=== PATIENT | female | born 1990 | race Caucasian/White ===

== ENCOUNTER 2019-12-31 11:42 | Emergency (ER) | payer BC, SELFPAY ==
--- NOTE | 2019-12-31 11:49 | ED.GENADULT ---
HPI - General Adult General Chief complaint: Upper Respiratory Infection Stated complaint: SORE THROAT/RUNNY NOSE/EYES BURNING Time Seen by Provider: 12/31/19 12:10 Source: patient Mode of arrival: ambulatory Limitations: no limitations History of Present Illness HPI narrative: 29-year-old female patient presents to the [facility] with complaints of cold symptoms that started yesterday. Patient states she did not get a flu shot this year. Patient states she has had a headache, nasal congestion, runny nose, sneezing and a slight cough. Patient also complaining of sore throat. Patient denies any nausea, vomiting or diarrhea. Denies any chest pain or shortness of breath. Patient denies taking anything for her symptoms. Patient states that she is working today and just ran over on her lunch break. Patient denies any or breast-feeding at the this time. Related Data Home Medications Medication Instructions Recorded Confirmed Daily Multivitamin 12/31/19 aspirin 81 mg PO DAILY 12/31/19 12/31/19 lisinopril 5 mg PO DAILY 12/31/19 12/31/19 Allergies Allergy/AdvReac Type Severity Reaction Status Date / Time codeine Allergy Unknown Rash Verified 12/31/19 11:56 latex Allergy Unknown Rash Verified 12/31/19 11:56 Review of Systems Review of Systems: Narrative: CONSTITUTIONAL: Denies fever, chills, or sweats. EYES: Denies visual changes, redness, or discharge. ENT: Positive rhinorrhea, congestion, sore throat, denies otalgia. CARDIOVASCULAR: Denies chest pain, palpitations, or edema. RESPIRATORY: Positive mild nonproductive cough, denies dyspnea. GASTROINTESTINAL: Denies abdominal pain, nausea, vomiting, or diarrhea. GENITOURINARY: Denies dysuria or hematuria. SKIN: Denies rash or itching. MUSCULOSKELETAL: Denies back pain, joint pain, or myalgia. NEUROLOGIC: Positive headache, denies numbness, or weakness. PSYCHIATRIC: Denies anxiety or depression. PMFSH Past Medical History Medical History (Updated 12/31/19 @ 12:20 by SATHYA Dhaliwal) Hypertension With Comments At the time of my signature I agree with nursing past medical history, surgical, social, and family history. There is no relevant family history pertinent to the presenting complaint. Exam Narrative: Exam Narrative: GENERAL: Well-appearing, well-nourished, and in no acute distress. HEAD: Normocephalic, atraumatic. No tenderness noted to frontal maxillary sinuses on palpation. EYES: PERRLA and EOMI. ENT: Nares clear, no rhinorrhea or epistaxis. Mucous membranes moist. Posterior pharynx with no erythema, tonsil enlargement, exudates or lesions present. Bilateral TMs are clear no erythema or foreign bodies in the canal. NECK: Supple. No lymphadenopathy CHEST: Clear to auscultation. No respiratory distress. HEART: Regular rate and rhythm. No murmur heard. Normal peripheral pulses. ABDOMEN: Soft, nontender, nondistended, normal active bowel sounds. EXTREMITIES: Normal range of motion. No edema. SKIN: Warm, dry, no rash. NEURO: No focal deficits. Alert and oriented x3. Course Reevaluation(s) Reevaluation #1: Notify patient that she is negative today for strep and influenza. Discussed with her that this is most likely some type of cold or virus that is causing her symptoms. Discussed with her she can take [id number] medications such as Tylenol, ibuprofen, a daily antihistamine or nasal steroid. Patient verbalized understanding denies any other questions or concerns at this time. Date: 12/31/19 Time: 12:20 Vital Signs Vital signs: Vital Signs Temperature 36.8 C 12/31/19 11:50 Pulse Rate 78 12/31/19 11:50 Respiratory Rate 16 12/31/19 11:50 Blood Pressure 133/87 12/31/19 11:50 Pulse Oximetry 100 12/31/19 11:50 Temperature 36.8 C 12/31/19 11:50 Pulse Rate 78 12/31/19 11:50 Respiratory Rate 16 12/31/19 11:50 Blood Pressure 133/87 12/31/19 11:50 Pulse Oximetry 100 12/31/19 11:50 Vital signs rev
[2019-12-31 11:50] VITALS: BP 133/87; PULSE 78; RESP 16; TEMP 36.8; O2SAT 100
== END 2019-12-31 12:30 | disposition home or self-care (01) ==
PROVIDERS: Emergency Provider Nurse Practitioner Family
DX: J06.9 Acute upper respiratory infection, unspecified (principal); R05 Cough
CPT/HCPCS: 87081; 87804; 87880; 99213; G0463

== ENCOUNTER 2020-08-17 12:48 | Outpatient (CLI) | payer OTHER, SELFPAY ==
--- NOTE | ~2020-08-17 | US_ITS ---
EXAMINATION: US thyroid EXAM DATE: 08/17/2020 14:36 INDICATION: Nontoxic goiter. Hypertension. TECHNIQUE: Multiple grayscale and Doppler images of the thyroid were obtained (by a technologist who performed the scan) and subsequently reviewed. Individual nodules and recommendations may be reporte d in accordance with TI-RADS system as designated by the 2017 ACR White Paper TI-RADS committee. The re is no prior study for comparison. FINDINGS: The right thyroid lobe measures 6.0 x 2.0 x 2.0 cm, the left measuring 7.0 x 4.1 x 5.1 cm. There is r elatively homogeneous thyroid echogenicity overall. Possible right thyroid lobe midpole deep nodule identified measuring 7 x 5 x 4 millimeters, solid (2 points), hypoechoic (2 points), wider than tall, smooth margin, without echogenic foci, category TR4 for this nodule. According to current recommendations, this is not likely clinically significant and no further monitoring for this. A repeat thyroid ultrasound can be obtained if additional palpable a bnormality develops. IMPRESSION: 1. Moderate thyromegaly. 2. Possible small right thyroid lobe nodule, not likely clinically significant. Reviewed, dictated and finalized at location A. IMPRESSION: 1. Moderate thyromegaly. 2. Possible small right thyroid lobe nodule, not likely clinically significant .
--- NOTE | ~2020-08-17 | US_ITS ---
EXAMINATION: US renal BI DATE: 08/17/2020 14:36 INDICATION: Hypertension. TECHNIQUE: Multiple ultrasound grayscale images of the kidneys were obtained. COMPARISON: None. FINDINGS: The right kidney measures 10.1 x 4.0 x 5.2 cm. The left kidney measures 10.0 x 4.4 x 5.2 cm. The kidn eys demonstrate normal parenchymal echogenicity. There is no hydronephrosis. The bladder is normal. IMPRESSION: 1. Normal kidneys. No hydronephrosis. Reviewed, dictated and finalized at location A.
--- NOTE | ~2020-08-17 | US_ITS ---
EXAMINATION: US retroperitoneal duplex ltd DATE: 08/17/2020 14:36 INDICATION: Hypertension. TECHNIQUE: Multiple grayscale, color Doppler, and pulsed Doppler images of the kidneys and renal laura frank were obtained. COMPARISON: None. FINDINGS: The aorta peak systolic velocity is 122 cm/s. The right renal artery peak systolic velocity is 112 cm /s in the proximal segment, 92 cm/s in the mid segment, and 90 cm/s in the distal segment. The left r enal artery peak systolic velocity is 74 cm/s in the proximal segment, 67 cm/s in the mid segment, an d 60 cm/s in the distal segment. IMPRESSION: 1. No Doppler evidence of renal artery stenosis. Reviewed, dictated and finalized at location A.
== END 2020-08-17 12:49 | disposition home or self-care (01) ==
LOC: ANHIMG 12:52
PROVIDERS: Visit Provider Internal Medicine
DX: E04.1 Nontoxic single thyroid nodule (principal); I10 Essential (primary) hypertension
CPT/HCPCS: 76536; 76775; 93976

== ENCOUNTER 2021-05-05 07:07 | Outpatient (CLI) | payer OTHER, SELFPAY ==
--- NOTE | 2021-05-05 07:21 | ECHO_ITS ---
Patient Info Name: Rachana Choe Age: 31 years : 1990 Gender: Female Ht: 66 in Wt: 118 lbs BSA: 1.57 m2 HR: 81 bpm BP: 132 / 101 mmHg Technical Quality: Good Exam Date: 05/05/2021 7:37 AM Exam Location: [facility] Patient Status: Outpatient Admit Date: 05/05/2021 Staff Ordering Physician: Partha Meier MD Machine Adjuster Leader: Sterling Gomez RDCS, RT Attending Provider: Partha Meier MD Referring Physician: Hardeep FERNANDO; Exam Type: CA echo doppler color flow Study Info Indications R01.1 - Cardiac murmur, unspecified Complete two-dimensional, color flow and Doppler transthoracic echocardiogram is performed. Strain analysis performed. Summary 1. Complete two-dimensional, color flow and Doppler transthoracic echocardiogram is performed. 2. Left ventricular chamber dimension is normal. 3. Left ventricular systolic function is normal, estimated at 60-65%. 4. The left ventricular diastolic function is normal. 5. E/e' 6 is not elevated. 6. Global longitudinal strain is normal at -18.5%. 7. There is trace mitral valve regurgitation. Left Ventricle E/e' 6 is not elevated. Global longitudinal strain is normal at -18.5%. Left ventricular chamber dimension is normal. Left ventricular systolic function is normal, estimated at 60-65%. The left ventricular diastolic function is normal. Right Ventricle Right ventricular systolic function is normal and with normal TAPSE 1.8 cm. Right ventricular chamber dimension is normal. Left Atria Left atrial chamber dimension is normal. Right Atria Right atrial chamber dimension is normal. Atrial Septum Intact interatrial septum visualized by Doppler imaging. Aortic Valve The aortic valve is probable trileaflet. There is no aortic valve stenosis. There is no aortic valve regurgitation. Pulmonic Valve There is no pulmonic regurgitation. Mitral Valve There is no mitral valve stenosis. There is trace mitral valve regurgitation. Tricuspid Valve There is no tricuspid valve regurgitation. Pericardium/Pleural There is no pericardial effusion. Inferior Vena Cava Normal inferior vena cava with >50% collapse upon inspiration consistent with normal right atrial pressure, 5 mmHg. Aorta The aortic root size at the sinus of Valsalva is normal. Left Ventricular Outflow Tract Name Value Normal LVOT 2D LVOT Diameter 2.0 cm LVOT Doppler LVOT Peak Gradient 3 mmHg LVOT Mean Gradient 1 mmHg LVOT VTI 15 cm LVOT VTI/AV VTI Ratio 0.7 LVOT Stroke Volume 48 ml LVOT CO 4.1 l/min LVOT CI 2.6 l/min/m2 Mitral Valve Name Value Normal MV Doppler MV Decel Benton
== END 2021-05-05 07:08 | disposition home or self-care (01) ==
PROVIDERS: PCP Internal Medicine; Visit Provider Internal Medicine
DX: R01.1 Cardiac murmur, unspecified (principal)
CPT/HCPCS: 93306

== ENCOUNTER 2022-06-28 08:01 | Outpatient (CLI) | payer OTHER, SELFPAY ==
[2022-06-28 08:33] LABS: Hematocrit 41.5 % (37.0-47.0); Hemoglobin 13.6 g/dL (12.0-15.0)
[2022-06-28 08:45] LABS: INR 1.1; Prothrombin Time 13.6 Seconds (11.1-14.7)
[2022-06-28 08:46] LABS: Partial Thromboplastin Time 30.4 SECONDS (22.3-36.8)
== END 2022-06-28 08:02 | disposition home or self-care (01) ==
LOC: ANHSURGERY 08:06
PROVIDERS: Anesthesiology; PCP Internal Medicine; Visit Provider Obstetrics & Gynecology
DX: N93.9 Abnormal uterine and vaginal bleeding, unspecified (principal); D68.9 Coagulation defect, unspecified; Z01.818 Encounter for other preprocedural examination
CPT/HCPCS: 36415; 85014; 85018; 85610; 85730

== ENCOUNTER 2022-07-01 00:25 | Day surgery (SDC) | payer OTHER, SELFPAY ==
[2022-06-23 14:44] VITALS: BMI 19.9
--- NOTE | 2022-06-23 14:51 | PC.NURSE ---
Report to the Outpatient Waiting Room, entrance under the green pavilion located off [facility], at time 0600___ on date _07/01/22_. OR Time: ___729_. - You and your visitor will be asked a series of questions to screen for COVID 19 for your protection. - Only one visitor is allowed at this time. - The patient visitor is requested to leave or wait in car when not with patient. - A mask is required within the hospital. Patients may have clear liquids (water, carbonated beverages, clear teas, apple juice) until 3 hours prior to surgery with a maximum of 20 ounces. - No food from midnight until time of surgery - Infants may have breast milk until 4 hours before surgery, formula 6 hours prior to surgery. - Children will be allowed to drink immediately following surgery. If applicable, please bring a bottle or sippy cup to assist with drinking. Juice, water, soda, and popsicles are readily available. For infants on formula, please bring formula the day of surgery. Pacifiers are allowed. Take the following medications with a SIP of water the morning of surgery: __NONE Medications to discontinue per physician ___VITAMINS, SUPPLIMENTS, PATIENT TO CHECK WITH MD ABOUT STOPPING ASPIRIN____ Date to take last dose 06/28/22 Please no make-up, nail equ[place] guine[place], hairspray, perfume, deodorant, or body powder the day of surgery. No jewelry (including any body piercings) or valuables the day of surgery, leave them at home. Please take a shower or bath the night before, or the morning of, surgery with an antibacterial soap. Wear comfortable, loose fitting clothing. Children are encouraged to wear pajamas. - Jewelry must be removed prior to entering the operating room. Rings and piercings that are not removed may be cut off. - The hospital will not accept responsibility for valuables. - Please leave all valuables, including medications, at home the day of surgery. If you are going home after surgery, a licensed limousine driver must drive you home. - NO public transportation without another adult. - We recommend that an adult stay with you for 24 hours following discharge. - We also recommend that you do not drive, make important decision, drink alcoholic beverages, or take any drugs that were not prescribed by your health care provider for at least 24 hours after your discharge time. For Pediatric surgeries, we recommend two adults accompany the child home (only one inside the building at this time). Follow any additional instructions given to you from your surgeon. If you or anyone in your household have experienced Covid symptoms in the past week, please notify your surgeon or the nurse liaison at the phone number below for possible testing. Telephone instructions given to __PATIENT__and asked if any additional questions and then verbalized understanding. Patient advised to call surgeon office or pre surgery nurse liaison [phone] if any additional questions.
--- NOTE | 2022-06-29 06:58 | P.HP_ITS ---
H&P: HPI History of Present Illness Date/Time: 06/29/22 06:58 Chief Complaint: 32-year-old female admitted for hysteroscopy dilatation curettage secondary to excessive heavy bleeding Narrative: to 32-year-old female admitted for hysteroscopy dilatation curettage secondary to excessive irregular bleeding and suspected polyp. Risks and benefits reviewed. She received the ACOG handout entitled hysteroscopy as well as dilatation curettage respectively. She had all questions answered and asked to proceed PMFSH Past Medical History Medical History (Updated 06/29/22 @ 06:59 by Titus Solitario MD) Adult BMI 19-24 kg/sq m Adult BMI <19 kg/sq m Anxiety Anxiety Encounter for preventive health examination Encounter for routine adult health examination without abnormal findings Enlarged thyroid Essential (primary) hypertension Establishing care with new doctor, encounter for Follow up Heart murmur History of anemia History of anxiety History of basal cell cancer History of ectopic History of headache Hypertension With Mitral valve regurgitation On correction drug therapy Pelvic pain Testosterone insufficiency Thyroid nodule Thyromegaly Family History Family History Mother Hypotension Rheumatoid arthritis Jaime's disease Sibling Hypertension Jaime's disease Social History Social History Smoking status: Never smoker Alcohol intake: current Drinks per week: 6 Alcohol use details: Social Substance use: never Meds Home Medications and Allergies Home Medications Medication Instructions Recorded Confirmed Type aspirin 81 mg chewable tablet 81 mg PO DAILY 12/31/19 06/27/22 History cholecalciferol (vitamin D3) 25 25 mcg PO DAILY 08/17/20 06/27/22 History mcg (1,000 unit) capsule cyanocobalamin (vitamin B-12) 1,000 mcg PO DAILY #90 tabs 08/17/20 06/27/22 Rx 1,000 mcg tablet magnesium oxide 500 mg capsule 500 mg PO DAILY 08/17/20 06/27/22 History multivitamin (One-A-Day Essential 1 tablet PO DAILY #90 tabs 08/17/20 06/27/22 Rx tablet) omega-3 fatty acids 1,000 mg 1,000 mg PO DAILY 08/17/20 06/27/22 History capsule (Fish Oil Concentrate) Testosterone Cream 1 ml topical 3XW #30 grams 11/30/21 06/27/22 Rx meclizine 25 mg tablet 25 mg PO TID PRN dizziness #25 tabs 02/01/22 06/27/22 Rx losartan 25 mg tablet 25 mg PO DAILY #90 tabs 03/07/22 06/27/22 Rx Allergies Allergy/AdvReac Type Severity Reaction Status Date / Time codeine Allergy Unknown Rash Verified 06/27/22 09:39 latex Allergy Unknown Rash Verified 06/27/22 09:39 Assessment and Plan Assessment and plan (1) Vaginal bleeding: Code(s): N93.9 - Abnormal uterine and vaginal bleeding, unspecified Status: Acute Plan hysteroscopy/dilatation curettage
--- NOTE | 2022-07-01 06:26 | WPDHPUPDATE1 ---
History and Physical Update Update Date/Time: 07/01/22 06:26 History and Physical has been reviewed, including an updated exam of the patient. There are NO changes in the patient's condition. Risks, benefits, and alternatives have been discussed and questions answered. Patient agrees to proceed with procedure.
[2022-07-01] MEDS: ACETAMINOPHEN 500 MG TABLET 1000 MG PO (06:31)
[2022-07-01 06:58] VITALS: BP 137/92; PULSE 77; RESP 16; TEMP 36.3; O2SAT 100
--- NOTE | 2022-07-01 07:02 | WPDANESEPPF ---
Anes - Initial Pre Proc Eval Procedure: Operation Date: 07/01/22 07:30 Proposed Procedures p Hysteroscopy Dilation and Curettage - Titus Solitario MD Date/Time: 07/01/22 07:02 Surgeon: Titus Solitario MD Pre Op Diagnosis: irregular bleeding Patient Data Age: 32 Gender: F Height: 1.68 m Weight: 55.3 kg Last Vital Signs Temp 36.3 C L 07/01/22 06:58 Pulse 77 07/01/22 06:58 Resp 16 07/01/22 06:58 BP 137/92 H 07/01/22 06:58 Pulse Ox 100 07/01/22 06:58 O2 Del Method Room Air 07/01/22 06:58 Allergies Allergy/AdvReac Type Severity Reaction Status Date / Time codeine Allergy Unknown Rash Verified 07/01/22 06:28 latex Allergy Unknown Rash Verified 07/01/22 06:28 Home Medications Medication Instructions Recorded Confirmed Type aspirin 81 mg chewable tablet 81 mg PO DAILY 12/31/19 06/27/22 History cholecalciferol (vitamin D3) 25 25 mcg PO DAILY 08/17/20 06/27/22 History mcg (1,000 unit) capsule cyanocobalamin (vitamin B-12) 1,000 mcg PO DAILY #90 tabs 08/17/20 06/27/22 Rx 1,000 mcg tablet magnesium oxide 500 mg capsule 500 mg PO DAILY 08/17/20 06/27/22 History multivitamin (One-A-Day Essential 1 tablet PO DAILY #90 tabs 08/17/20 06/27/22 Rx tablet) omega-3 fatty acids 1,000 mg 1,000 mg PO DAILY 08/17/20 06/27/22 History capsule (Fish Oil Concentrate) Testosterone Cream 1 ml topical 3XW #30 grams 11/30/21 06/27/22 Rx meclizine 25 mg tablet 25 mg PO TID PRN dizziness #25 tabs 02/01/22 06/27/22 Rx losartan 25 mg tablet 25 mg PO DAILY #90 tabs 03/07/22 06/27/22 Rx hydrocodone 5 mg-acetaminophen 325 1 tablet PO Q4H PRN pain #10 tabs 07/01/22 Rx mg tablet Patient hx anesthesia problems: none Family hx anesthesia problems: none Results Review: All pre-operative results and documents have been reviewed as part of the pre-operative evaluation. [facility] Past Medical History Medical History Adult BMI 19-24 kg/sq m Adult BMI <19 kg/sq m Anxiety Anxiety Encounter for preventive health examination Encounter for routine adult health examination without abnormal findings Enlarged thyroid Essential (primary) hypertension Establishing care with new doctor, encounter for Follow up Heart murmur History of anemia History of anxiety History of basal cell cancer History of ectopic History of headache Hypertension With Mitral valve regurgitation On terminal gauger drug therapy Pelvic pain Testosterone insufficiency Thyroid nodule Thyromegaly Family History Family History Mother Hypotension Rheumatoid arthritis Jaime's disease Sibling Hypertension Jaime's disease Social History Social History Smoking status: Never smoker Alcohol intake: current Drinks per week: 6 Alcohol use details: Social Substance use: never Living arrangements: with family Anes - Eval Final PreProcedure Day of Procedure 07/01/22 07:02 Patient weight: normal Lungs: clear to auscultation Airway: Mallampati scale class II Neurological: alert and oriented Last oral intake: >/= 8 hours ASA classification: II Emergent: no Anesthetic plan: proceed Anesthesia type and monitoring: general GIVS and standard monitoring Results Review: All pre-operative results and documents have been reviewed as part of the pre-operative evaluation. Informed Consent: The patient's anesthetic plan and its attendant risks and benefits were discussed with the patient/family/POA. Questions were solicited and answers provided to the satisfaction of the patient/family/POA.
[2022-07-01] MEDS: LACTATED RINGERS 1,000 ML 30 ML IV CONT (07:15)
[2022-07-01] MEDS: KETOROLAC 30 MG/ML VIAL (*BKC) IV PUSH (07:34)
--- NOTE | 2022-07-01 07:44 | W.PM.PROC2 ---
Procedure Note - Detailed Date of Procedure 07/01/22 Pre-op Diagnosis irregular bleeding Post-op Diagnosis Same Procedure Performed Hysteroscopy/dilatation curettage Surgeon Titus Solitario MD Anesthesia MAC and Local Indications Sit 32-year-old female with irregular bleeding Findings Uterus sounds 8cm. Thick endometrial tissue normal-appearing tubal ostia bilaterally Description of Procedure Patient was prepped draped in sterile fashion placed in dorsal lithotomy position. Under excellent IV sedation weighted speculum placed in posterior fornix vagina. Anterior lip of cervix grasped with single-tooth tenaculum. 2.5cc of 1% xylocaine anesthesia placed at 2, 4, 8, 10:00 a.m. of the cervix. Uterus sounded to 8cm. Serial dilatation with fragmented dilators performed. This was followed by passage of 5mm visualizing hysteroscope using normal saline as visualizing medium. Thick endometrial tissue was seen but no evidence of polyp or other irregularities. Photo documentation was undertaken. This was followed by scraping the uterus over the entire 360? removing a moderate amount of tissue until a good grating sound was heard. When when the instruments were then removed. All sponge, needle, instrument counts were correct. Were no immediate complications blood loss was estimated at5cc Estimated Blood Loss 5 Drains No Packing No Pathology Yes Complications No immediate complications Condition Stable Disposition PACU
[2022-07-01 07:47] VITALS: BP 105/57; PULSE 77; RESP 12
[2022-07-01 08:15] VITALS: BP 110/67; PULSE 69; RESP 20
[2022-07-01 08:45] VITALS: BP 111/79; PULSE 73; RESP 20
== END 2022-07-01 08:49 | disposition home or self-care (01) ==
PROVIDERS: PCP Internal Medicine; Visit Provider Obstetrics & Gynecology
PROC: 0U5B8ZZ Destruction of Endometrium, Via Natural or Artificial Opening Endoscopic (ICD-10-PCS; CPT 58563; principal; 2022-07-01 07:30)
DX: N93.9 Abnormal uterine and vaginal bleeding, unspecified (principal); I10 Essential (primary) hypertension; I34.0 Nonrheumatic mitral (valve) insufficiency; Z79.82 Long term (current) use of aspirin
CPT/HCPCS: 58558; 36415; 85014; 85018; 85610; 85730; 88305; A9270; J1100; J1885; J2001; J2250; J2405; J2704; J3010; J7030; J7120

== ENCOUNTER 2022-10-25 08:24 | Outpatient (CLI) | payer OTHER, SELFPAY ==
--- NOTE | 2022-10-25 08:32 | ECG_ITS ---
Measurements Intervals [place] Rate: 70 P: 63 [place]: 155 QRS: 71 QRSD: 83 T: 55 QT: 369 QTc: 400 Interpretive Statements SINUS RHYTHM NO PREVIOUS ECG AVAILABLE FOR COMPARISON Electronically Signed On 10-25-2022 15:31:19 CHURN OPERATOR by Yary Daniels M.D.
== END 2022-10-25 08:25 | disposition home or self-care (01) ==
PROVIDERS: PCP Internal Medicine; Visit Provider Obstetrics & Gynecology
DX: Z01.818 Encounter for other preprocedural examination (principal); I10 Essential (primary) hypertension; R10.2 Pelvic and perineal pain
CPT/HCPCS: 36415; 86850; 86900; 86901; 93005

== ENCOUNTER 2022-11-04 00:55 | Day surgery (SDC) | payer OTHER, SELFPAY ==
[2022-10-21 14:27] VITALS: BMI 19.5
--- NOTE | 2022-10-21 14:59 | PC.NURSE ---
Report to the Outpatient Waiting Room, entrance under the green pavilion located off [facility], at time _0915_ on date _11/04/22__. Planned Procedure Time: _1115___. Time changes happen often and if your time is changed the preop area will call you the afternoon before. - You and your visitor will be asked to self-screen and do not enter if you have any COVID symptoms. - Only one visitor is requested with a max of two and NO children visitors are allowed at this time. - The patient visitor may be requested to leave or wait in car when not with patient due to distancing restrictions. - A mask is optional within the hospital. Patients may have clear liquids (water, carbonated beverages, clear teas, apple juice) until 3 hours prior to surgery with a maximum of 20 ounces. - No food from midnight until time of surgery - Take the following medications with a SIP of water the morning of surgery: LOSARTAN THE NIGHT BEFORE; MECLIZINE THE MORNING OF YOUR SURGERY IF NEEDED Medications to discontinue per physician __CHECK WITH DR. JONO BURGESS re: STOPPING ASPIRIN; STOP ALL VITAMINS 11/01/22 Date to take last dose_10/31/22 FOR VITAMINS Please no make-up, nail haitian, hairspray, perfume, deodorant, or body powder the day of surgery. No jewelry (including any body piercings) or valuables the day of surgery, leave them at home. Please take a shower or bath the night before, or the morning of, surgery with an antibacterial soap. Wear comfortable, loose fitting clothing. Children are encouraged to wear pajamas. - Jewelry must be removed prior to entering the operating room. Rings and piercings that are not removed may be cut off. - The hospital will not accept responsibility for valuables. - Please leave all valuables, including medications, at home the day of surgery. If you are going home after surgery, a licensed hire car driver must drive you home. - NO public transportation without another adult if you receive anesthesia. - We recommend that an adult stay with you for 24 hours following discharge. - We also recommend that you do not drive, make important decision, drink alcoholic beverages, or take any drugs that were not prescribed by your health care provider for at least 24 hours after your discharge time. Follow any additional instructions given to you from your surgeon. If you or anyone in your household have experienced Covid symptoms in the past week, please notify your surgeon or the nurse liaison at the phone number below for possible testing. Telephone instructions given to _MOLLY_and asked if any additional questions and then verbalized understanding. Patient advised to call surgeon office or pre surgery nurse liaison [phone] if any additional questions.
--- NOTE | 2022-11-01 07:57 | PM.IMHP ---
H&P: HPI History of Present Illness Date/Time: 11/01/22 07:57 Chief Complaint: Pelvic pain Narrative: A 32-year-old female with severe pelvic pain. Imaging has been unhelpful. She continues to have pain and dyspareunia. She is offered laparoscopy. Risks and benefits reviewed including but not exclusive of , aspiration pneumonia, bleeding, transfusion, perforation injury to bowel, bladder, ureters, or other internal organs with the need for open laparotomy. She received the ACOG handout entitled laparoscopy. She had all questions answered. She asked to proceed proceed PMFSH Past Medical History Medical History Adult BMI 19-24 kg/sq m Adult BMI <19 kg/sq m Anxiety Anxiety Encounter for preventive health examination Encounter for routine adult health examination without abnormal findings Enlarged thyroid Essential (primary) hypertension Establishing care with new doctor, encounter for Follow up Heart murmur History of anemia History of anxiety History of basal cell cancer History of ectopic History of headache Hypertension With Mitral valve regurgitation On nursing home drug therapy Pelvic pain Testosterone insufficiency Thyroid nodule Thyromegaly Family History Family History Mother Hypotension Rheumatoid arthritis Jaime's disease Sibling Hypertension Jaime's disease Social History Social History Smoking status: Never smoker Alcohol intake: current Drinks per week: 6 Alcohol use details: Social Substance use: never Substance use type: does not use Spiritual care concerns: No Meds Home Medications and Allergies Home Medications Medication Instructions Recorded Confirmed Type aspirin 81 mg chewable tablet 81 mg PO DAILY 12/31/19 10/21/22 History cholecalciferol (vitamin D3) 25 25 mcg PO DAILY 08/17/20 10/21/22 History mcg (1,000 unit) capsule cyanocobalamin (vitamin B-12) 1,000 mcg PO DAILY #90 tabs 08/17/20 10/21/22 Rx 1,000 mcg tablet magnesium oxide 500 mg capsule 500 mg PO DAILY 08/17/20 10/21/22 History multivitamin (One-A-Day Essential 1 tablet PO DAILY #90 tabs 08/17/20 10/21/22 Rx tablet) omega-3 fatty acids 1,000 mg 1,000 mg PO DAILY 08/17/20 10/21/22 History capsule (Fish Oil Concentrate) Testosterone Cream 1 ml topical 3XW #30 grams 11/30/21 10/21/22 Rx meclizine 25 mg tablet 25 mg PO TID PRN dizziness #25 tabs 02/01/22 10/21/22 Rx losartan 25 mg tablet 25 mg PO DAILY #90 tabs 09/05/22 10/21/22 Rx progesterone micronized 200 mg 200 mg PO DAILY 10/21/22 10/21/22 History capsule Allergies Allergy/AdvReac Type Severity Reaction Status Date / Time codeine Allergy Unknown Rash Verified 10/21/22 15:12 latex Allergy Unknown Rash Verified 10/21/22 15:12 Exam Const: General: cooperative, healthy appearing, comfortable and average body habitus Orientation/consciousness: oriented to person, oriented to place and oriented to time HENMT: Head: normal to inspection Resp: Effort & Inspection: normal respiratory effort Cardio: Rate: regular rate Rhythm: regular rhythm Heart sounds: S1 normal heart sound present and S2 normal heart sound present GI: Inspection: normal to inspection : External Female Exam: normal external appearance Speculum Exam - Vagina: normal appearance of the vagina Speculum Exam - Cervix: normal appearance of the cervix Bimanual exam- vagina & uterus: Cervical tenderness present and Uterine tenderness Bimanual Exam- Adnexa, other: tender Assessment and Plan Assessment and plan (1) Pelvic pain: Code(s): R10.2 - Pelvic and perineal pain Status: Acute Plan Diagnostic laparoscopy
[2022-11-04] VITALS (12 sets, daily range): BP systolic 110–132; BP diastolic 64–87; PULSE 63–84; RESP 12–20; TEMP 36.1; O2SAT 98–100
--- NOTE | 2022-11-04 06:12 | WPDHPUPDATE1 ---
History and Physical Update Update Date/Time: 11/04/22 06:12 History and Physical has been reviewed, including an updated exam of the patient. There are NO changes in the patient's condition. Risks, benefits, and alternatives have been discussed and questions answered. Patient agrees to proceed with procedure.
[2022-11-04] MEDS: LACTATED RINGERS 1,000 ML 30 ML IV CONT (09:20)
[2022-11-04] MEDS: ACETAMINOPHEN 500 MG TABLET 1000 MG PO (09:36)
[2022-11-04] MEDS: KETOROLAC 15 MG/ML VIAL (*BKC) IV PUSH (09:36)
--- NOTE | 2022-11-04 09:49 | WPDANESEPPF ---
Anes - Initial Pre Proc Eval Procedure: Operation Date: 11/04/22 11:15 Proposed Procedures p Diagnostic Laparoscopy - Titus Solitario MD Date/Time: 11/04/22 09:49 Surgeon: Titus Solitario MD Pre Op Diagnosis: pelvic pain Patient Data Age: 32 Gender: F Height: 1.68 m Weight: 56.4 kg Allergies Allergy/AdvReac Type Severity Reaction Status Date / Time codeine Allergy Unknown Nausea and Verified 11/04/22 09:24 Vomiting latex Allergy Unknown Rash Verified 11/04/22 09:24 Home Medications Medication Instructions Recorded Confirmed Type aspirin 81 mg chewable tablet 81 mg PO DAILY 12/31/19 11/04/22 History cholecalciferol (vitamin D3) 25 25 mcg PO DAILY 08/17/20 11/04/22 History mcg (1,000 unit) capsule cyanocobalamin (vitamin B-12) 1,000 mcg PO DAILY #90 tabs 08/17/20 11/04/22 Rx 1,000 mcg tablet magnesium oxide 500 mg capsule 500 mg PO DAILY 08/17/20 10/21/22 History multivitamin (One-A-Day Essential 1 tablet PO DAILY #90 tabs 08/17/20 11/04/22 Rx tablet) omega-3 fatty acids 1,000 mg 1,000 mg PO DAILY 08/17/20 11/04/22 History capsule (Fish Oil Concentrate) Testosterone Cream 1 ml topical 3XW #30 grams 11/30/21 10/21/22 Rx meclizine 25 mg tablet 25 mg PO TID PRN dizziness #25 tabs 02/01/22 10/21/22 Rx losartan 25 mg tablet 25 mg PO DAILY #90 tabs 09/05/22 10/21/22 Rx progesterone micronized 200 mg 200 mg PO DAILY 10/21/22 10/21/22 History capsule hydrocodone 5 mg-acetaminophen 325 1 tablet PO Q4H PRN pain #20 tabs 11/04/22 Rx mg tablet Patient hx anesthesia problems: none Family hx anesthesia problems: none Results Review: All pre-operative results and documents have been reviewed as part of the pre-operative evaluation. [facility] Past Medical History Medical History Adult BMI 19-24 kg/sq m Adult BMI <19 kg/sq m Anxiety Anxiety Encounter for preventive health examination Encounter for routine adult health examination without abnormal findings Enlarged thyroid Essential (primary) hypertension Establishing care with new doctor, encounter for Follow up Heart murmur History of anemia History of anxiety History of basal cell cancer History of ectopic History of headache Hypertension With Mitral valve regurgitation On retirement drug therapy Pelvic pain Testosterone insufficiency Thyroid nodule Thyromegaly Family History Family History Mother Hypotension Rheumatoid arthritis Jaime's disease Sibling Hypertension Jaime's disease Social History Social History Smoking status: Never smoker Alcohol intake: current Drinks per week: 6 Alcohol use details: Social Substance use: never Substance use type: does not use Living arrangements: with family Spiritual care concerns: No Anes - Eval Final PreProcedure Day of Procedure 11/04/22 09:49 Patient weight: normal Heart: regular rate and rhythm Lungs: clear to auscultation Airway: Mallampati scale class II Neurological: alert and oriented Last oral intake: >/= 8 hours ASA classification: II Emergent: no Anesthetic plan: proceed Anesthesia type and monitoring: general ETT and standard monitoring Results Review: All pre-operative results and documents have been reviewed as part of the pre-operative evaluation. Informed Consent: The patient's anesthetic plan and its attendant risks and benefits were discussed with the patient/family/POA. Questions were solicited and answers provided to the satisfaction of the patient/family/POA.
--- NOTE | 2022-11-04 11:21 | W.PM.PROC2 ---
Procedure Note - Detailed Date of Procedure 11/04/22 Pre-op Diagnosis pelvic pain Post-op Diagnosis Other (Endometriosis/left ovarian cyst/ pelvic adhesions) Procedure Performed laparoscopic destruction of left ovarian cyst/lysis of adhesions/destruction of endometriosis Surgeon Titus Solitario MD Anesthesia General Indications this is a 32-year-old female with pelvic pain refractory to medical therapy Findings normal-appearing uterus. Normal-appearing right ovary and tube. Moderately large benign-appearing left ovarian cyst. Adhesions from the ovary and tube to the ovarian fossa on the left. Areas of powder burn endometriosis on bladder and along the uterosacral ligament. Description of Procedure Patient was prepped draped in the normal sterile fashion placed in the dorsal lithotomy position. Under excellent general trach anesthesia weighted speculum was placed in posterior fornix vagina. Anterior lip of the cervix grasped with a single-tooth tenaculum. The Castañeda's cannula was inserted the cervix attached to the single-tooth. These were used later for uterine manipulation. After emptying the bladder clear urine, the weighted speculum was removed and the gloves were changed. An infraumbilical incision made the Veress needle passed in the abdomen. Abdomen filled with CO2 gas [id number]. The 5mm trocar advanced under direct visualization assuring no injury. The patient placed in Trendelenburg and a suprapubic incision made. 5Mm trocar advanced under direct visualization assuring no injury. The above findings were seen. The areas of endometriosis of powder burn along the uterosacrals were cauterized at 35 w per 2nd with monopolar cautery. There was a the left ovary and tube were markedly adherent to the ovarian fossa. A right lower quadrant incision was made in the 5mm trocar advanced under direct visualization. Using this to left the areas were sharply dissected using occasional cautery and loose and after draining the ovarian cyst. Some small areas of endometriosis were seen and there were point cauterized with 35 w per 2nd. The colon appeared a little bit adhesed as well and this was gently released with blunt dissection. Irrigation was undertaken until clear. No other abnormalities were seen. The lower site removed. The gas removed from the abdomen. The upper site removed. The incisions closed with 4-0 Monocryl and glue. The instruments were then removed from the vagina the patient was awakened. She went to recovery in satisfactory condition. All sponge, needle, instrument counts were correct. There were no immediate complications Estimated Blood Loss 5 Drains No Packing No Pathology None sent Complications No immediate complications Condition Stable Disposition PACU
[2022-11-04] MEDS: fentaNYL CITRATE INJ (*CRX) 100 MCG/2 ML VIAL 25 MCG IV PUSH ×4 (11:44→12:23)
[2022-11-04] MEDS: oxyCODONE HCL (*CRX) 5 MG TAB IR PO (13:16)
== END 2022-11-04 14:18 | disposition home or self-care (01) ==
PROVIDERS: PCP Internal Medicine; Visit Provider Obstetrics & Gynecology
PROC: (CPT 49320; principal; 2022-11-04 11:15)
DX: N80.3C9 Endometriosis of the uterosacral ligament(s), unspecified side, unspecified depth (principal); N80.A0 Endometriosis of bladder, unspecified depth; N73.6 Female pelvic peritoneal adhesions (postinfective); N83.202 Unspecified ovarian cyst, left side; N94.10 Unspecified dyspareunia; R10.2 Pelvic and perineal pain; I10 Essential (primary) hypertension; I34.0 Nonrheumatic mitral (valve) insufficiency; Z79.82 Long term (current) use of aspirin
CPT/HCPCS: 58662; 36415; 86850; 86900; 86901; 93005; A9270; J0330; J1100; J1885; J2250; J2405; J2704; J3010; J7030; J7120

== ENCOUNTER 2024-10-08 08:13 | Outpatient (CLI) | payer OTHER, SELFPAY ==
--- NOTE | 2024-10-08 08:26 | ECG_ITS ---
Test Date: 2024-10-08 08:48:15 Measurements Intervals [place] Rate: 76 P: 57 NV: 150 QRS: 68 QRSD: 85 T: 59 QT: 334 QTc: 377 Interpretive Statements SINUS RHYTHM NORMAL ECG No previous ECG available for comparison Electronically Signed On 10-08-2024 09:00:50 OFFAL SEPARATOR by Danny Martinez D.O.
== END 2024-10-08 08:14 | disposition home or self-care (01) ==
LOC: ANHSURGERY 08:18
PROVIDERS: PCP Internal Medicine; Visit Provider Obstetrics & Gynecology
DX: N81.4 Uterovaginal prolapse, unspecified (principal); I10 Essential (primary) hypertension
CPT/HCPCS: 36415; 86850; 86900; 86901; 93005

== ENCOUNTER 2024-10-11 00:07 | Day surgery (SDC) | payer OTHER, SELFPAY ==
--- NOTE | 2024-10-04 14:11 | PC.NURSE ---
Report to the Outpatient Waiting Room, entrance under the green pavilion located off [facility], at time _0930_ on date _[id number]_. Planned Procedure Time: _1130_.? Time changes happen often and if your time is changed the preop area will call you the afternoon before. - You and your visitor will be asked to self-screen and do not enter if you have any COVID symptoms. Please call surgeon if you need to reschedule. - A mask is optional within the hospital at this time. Patients may have clear liquids (water, carbonated beverages, clear teas, apple juice) until 3 hours prior to surgery with a maximum of 20 ounces. - No food from midnight until time of surgery and no smoking. This includes no chewing gum, candy or mints. Take only the following medications with a SIP of water on the morning of surgery: __Bupropion___ DO NOT STOP ANY OF YOUR OTHER PRESCRIPTION MEDICATIONS PRIOR TO SURGERY EXCEPT THE FOLLOWING Medications to discontinue per physician ___Vitamins and fish oil Date to take last tfpu___[id number]___ Please no make-up, nail malagasy, hairspray, perfume, deodorant, or body powder the day of surgery.? No jewelry (including any body piercings) or valuables the day of surgery, leave them at home.? Please take a shower or bath the night before, or the morning of, surgery with an antibacterial soap.? Wear comfortable, loose fitting clothing.? - Jewelry must be removed prior to entering the operating room.? Rings and piercings that are not removed may be cut off. - The hospital will not accept responsibility for valuables.? - Please leave all valuables, including medications, at home the day of surgery. If you are going home after surgery, a licensed power truck driver must drive you home.? - NO public transportation without another adult if you receive anesthesia. - We recommend that an adult stay with you for 24 hours following discharge. - We also recommend that you do not drive, make important decision, drink alcoholic beverages, or take any drugs that were not prescribed by your health care provider for at least 24 hours after your discharge time. Follow any additional instructions given to you from your surgeon. Telephone instructions given to __Rachana__and asked if any additional questions and then verbalized understanding. Patient advised to call surgeon office or pre surgery nurse liaison [phone] if any additional questions.
--- NOTE | 2024-10-09 06:28 | PM.IMHP ---
H&P: HPI History of Present Illness Date/Time: 10/09/24 06:28 Chief Complaint: Pelvic pain prolapse as well as dyspareunia Narrative: 34-year-old female total vaginal hysterectomy salpingectomy secondary to uterine pelvic pain dyspareunia second-degree prolapse was heavy bleeding pressure and dyspareunia will undergo hysterectomy and salpingectomy risks and benefits reviewed including exclusive of , aspiration bleeding, transfusion, perforation injury to bowel, bladder, ureters, or other internal organs with need laparotomy. She received the ACOG hysterectomy as well as the [facility] handout. She had all questions answered. She asked to proceed Review of Systems Review of Systems: CONSTITUTIONAL: Denies fever, chills, or sweats. EYES: Denies visual changes, redness, or discharge. ENT: Positive rhinorrhea, congestion, sore throat, denies otalgia. CARDIOVASCULAR: Denies chest pain, palpitations, or edema. RESPIRATORY: Positive mild nonproductive cough, denies dyspnea. GASTROINTESTINAL: Denies abdominal pain, nausea, vomiting, or diarrhea. GENITOURINARY: Denies dysuria or hematuria. SKIN: Denies rash or itching. MUSCULOSKELETAL: Denies back pain, joint pain, or myalgia. NEUROLOGIC: Positive headache, denies numbness, or weakness. PSYCHIATRIC: Denies anxiety or depression. [facility] Past Medical History Medical History Adult BMI 19-24 kg/sq m Adult BMI <19 kg/sq m Anxiety Anxiety Encounter for preventive health examination Encounter for routine adult health examination with abnormal findings Encounter for routine adult health examination without abnormal findings Enlarged thyroid Essential (primary) hypertension Establishing care with new doctor, encounter for FHx: thromboembolic disease Follow up Hair loss Heart murmur History of anemia History of anxiety History of basal cell cancer History of ectopic History of headache History of in vitro fertilization Hoarseness of voice Hypertension With Mitral valve regurgitation On senior care drug therapy Pelvic pain Testosterone insufficiency Thyroid nodule Thyromegaly Family History Family History Mother Hypotension Rheumatoid arthritis Jaime's disease Sibling Hypertension Jaime's disease Social History Social History Smoking status: Never smoker Alcohol intake: current Drinks per week: 6 Alcohol use details: Social Substance use: never Substance use type: does not use Lack of Transportation: No Lack of Food: Never True Current Housing: I Have Housing Concerned About Future Housing: No Difficulty Paying Gas/Electric Bills: No Difficulty Paying for Meds: No Currently Unemployed: No Education: Associate Degree Difficulty w/ Childcare or Family Care: No Living arrangements: with family Occupation/Education: occupation Gender identity (if verbalized by the patient): Female Spiritual care concerns: No Meds Home Medications and Allergies Home Medications Medication Instructions Recorded Confirmed Type aspirin 81 mg chewable tablet 81 mg PO DAILY 12/31/19 10/04/24 History cyanocobalamin (vitamin B-12) 1,000 mcg PO DAILY #90 tabs 08/17/20 10/04/24 Rx 1,000 mcg tablet magnesium oxide 500 mg capsule 500 mg PO DAILY 08/17/20 10/04/24 History multivitamin (One-A-Day Essential 1 tablet PO DAILY #90 tabs 08/17/20 10/04/24 Rx tablet) omega-3 fatty acids 1,000 mg 1,000 mg PO DAILY 08/17/20 10/04/24 History capsule (Fish Oil Concentrate) cholecalciferol (vitamin D3) 50 50 mcg PO DAILY 03/23/23 10/04/24 History mcg (2,000 unit) capsule triamcinolone acetonide 55 mcg 2 spray intranasal DAILY PRN 06/13/23 10/04/24 Rx nasal spray aerosol (Nasacort) seasonal allergies #16.9 mL losartan 25 mg tablet See Rx Instructions .Route 05/31/24 10/04/24 Rx .COMPLEX #90 tabs bupropion HCl 150 mg 24 hr tablet, See Rx Instructions .Route 08/30/24 10/04/24 Rx extended release .COMPLEX #45 tabs B-complex with vitamin C 1 tablet PO DAILY 10/01/24 10/04/24 History ferrous sulfate 325 mg (65 mg 325 mg PO BID #180 tabs 10/01/24 10/04/24 Rx iron) tablet (Feosol) progesterone micronized 100 mg 150 mg PO QAM 10/01/24 10/04/24 History capsule Allergies Allergy/AdvReac Type Severity Reaction Status Date / Time codeine Allergy Unknown Nausea and Verified 10/04/24 14:03 Vomiting latex Allergy Unknown Rash Verified 10/04/24 14:03 Exam Const: General: cooperative, healthy appearing and comfortable Nutritional Appearance: average body habitus Orientation/consciousness: oriented to person, oriented to place and oriented to time HENMT: Head: normal to inspection Resp: Effort & Inspection: normal respiratory effort Cardio: Rate: regular rate Rhythm: regular rhythm Heart sounds: S1 normal heart sound present and S2 normal heart sound present GI: Inspection: normal to inspection : External Female Exam: normal external appearance Speculum Exam - Vagina: normal appearance of the vagina Speculum Exam - Cervix: normal appearance of the cervix (Second-degree prolapse present) Bimanual exam- vagina & uterus: enlarged and Uterine tenderness Bimanual Exam- Adnexa, other: normal adnexae Assessment and Plan Assessment and plan (1) Pelvic pain: Code(s): R10.2 - Pelvic and perineal pain Status: Acute (2) Iron deficiency anemia, unspecified: Qualifiers: Iron deficiency anemia type: unspecified iron deficiency Qualified Code(s): D50.9 - Iron deficiency anemia, unspecified Code(s): D50.9 - Iron deficiency anemia, unspecified Status: Acute (3) Uterine prolapse: Code(s): N81.4 - Uterovaginal prolapse, unspecified Status: Acute Assessment and Plan: Proceed with robotic total vaginal hysterectomy salpingectomy
[2024-10-11] VITALS (15 sets, daily range): BP systolic 97–132; BP diastolic 59–93; PULSE 54–94; RESP 12–18; TEMP 36.3–37.2; O2SAT 90–100; BMI 19.3
--- NOTE | 2024-10-11 06:48 | WPDHPUPDATE1 ---
History and Physical Update Update Date/Time: 10/11/24 06:48 History and Physical has been reviewed, including an updated exam of the patient. There are NO changes in the patient's condition. Risks, benefits, and alternatives have been discussed and questions answered. Patient agrees to proceed with procedure.
[2024-10-11] MEDS: LACTATED RINGERS 1,000 ML 30 ML IV CONT ×2 (08:00→10:05)
[2024-10-11] MEDS: SCOPOLAMINE 1 MG PATCH 1 PATCH TRANSDERM (08:21)
--- NOTE | 2024-10-11 08:21 | P.PNAN_ITS ---
Anes - Initial Pre Proc Eval Procedure: Operation Date: 10/11/24 09:30 Proposed Procedures p Robotic Assisted Total Vaginal Hysterectomy with Bilateral Salpingectomy - Titus Solitario MD Date/Time: 10/11/24 08:21 Surgeon: Titus Solitario MD Pre Op Diagnosis: uterine prolapse, pelvic pain, dyspareunia Patient Data Age: 34 Gender: F Height: 1.68 m Weight: 56.4 kg Allergies Allergy/AdvReac Type Severity Reaction Status Date / Time codeine Allergy Unknown Nausea and Verified 10/04/24 14:03 Vomiting latex Allergy Unknown Rash Verified 10/04/24 14:03 Home Medications Medication Instructions Recorded Confirmed Type aspirin 81 mg chewable tablet 81 mg PO DAILY 12/31/19 10/04/24 History cyanocobalamin (vitamin B-12) 1,000 mcg PO DAILY #90 tabs 08/17/20 10/04/24 Rx 1,000 mcg tablet magnesium oxide 500 mg capsule 500 mg PO DAILY 08/17/20 10/04/24 History multivitamin (One-A-Day Essential 1 tablet PO DAILY #90 tabs 08/17/20 10/04/24 Rx tablet) omega-3 fatty acids 1,000 mg 1,000 mg PO DAILY 08/17/20 10/04/24 History capsule (Fish Oil Concentrate) cholecalciferol (vitamin D3) 50 50 mcg PO DAILY 03/23/23 10/04/24 History mcg (2,000 unit) capsule triamcinolone acetonide 55 mcg 2 spray intranasal DAILY PRN 06/13/23 10/04/24 Rx nasal spray aerosol (Nasacort) seasonal allergies #16.9 mL losartan 25 mg tablet See Rx Instructions .Route 05/31/24 10/04/24 Rx .COMPLEX #90 tabs bupropion HCl 150 mg 24 hr tablet, See Rx Instructions .Route 08/30/24 10/04/24 Rx extended release .COMPLEX #45 tabs B-complex with vitamin C 1 tablet PO DAILY 10/01/24 10/04/24 History ferrous sulfate 325 mg (65 mg 325 mg PO BID #180 tabs 10/01/24 10/04/24 Rx iron) tablet (Feosol) progesterone micronized 100 mg 150 mg PO QAM 10/01/24 10/04/24 History capsule oxycodone-acetaminophen 5 mg-325 1 tablet PO Q4H PRN pain #20 tabs 10/11/24 Rx mg tablet (Percocet) Patient hx anesthesia problems: none Family hx anesthesia problems: none Results Review: All pre-operative results and documents have been reviewed as part of the pre- operative evaluation. [facility] Past Medical History Medical History Adult BMI 19-24 kg/sq m Adult BMI <19 kg/sq m Anxiety Anxiety Encounter for preventive health examination Encounter for routine adult health examination with abnormal findings Encounter for routine adult health examination without abnormal findings Enlarged thyroid Essential (primary) hypertension Establishing care with new doctor, encounter for FHx: thromboembolic disease Follow up Hair loss Heart murmur History of anemia History of anxiety History of basal cell cancer History of ectopic History of headache History of in vitro fertilization Hoarseness of voice Hypertension With Mitral valve regurgitation On senior care drug therapy Pelvic pain Testosterone insufficiency Thyroid nodule Thyromegaly Family History Family History Mother Hypotension Rheumatoid arthritis Jaime's disease Sibling Hypertension Jaime's disease Social History Social History Smoking status: Never smoker Alcohol intake: current Drinks per week: 6 Alcohol use details: Social Substance use: never Substance use type: does not use Lack of Transportation: No Lack of Food: Never True Current Housing: I Have Housing Concerned About Future Housing: No Difficulty Paying Gas/Electric Bills: No Difficulty Paying for Meds: No Currently Unemployed: No Education: Associate Degree Difficulty w/ Childcare or Family Care: No Living arrangements: with family Occupation/Education: occupation Gender identity (if verbalized by the patient): Female Spiritual care concerns: No Anes - Eval Final PreProcedure Day of Procedure 10/11/24 08:21 Patient weight: normal Heart: regular rate and rhythm Lungs: clear to auscultation Airway: Mallampati scale class II Neurological: alert and oriented Last oral intake: >/= 8 hours ASA classification: II Emergent: no Anesthetic plan: proceed Anesthesia type and monitoring: general ETT and standard monitoring Results Review: All pre-operative results and documents have been reviewed as part of the pre- operative evaluation. Informed Consent: The patient's anesthetic plan and its attendant risks and benefits were discussed with the patient/family/POA. Questions were solicited and answers provided to the satisfaction of the patient/family/POA.
[2024-10-11] MEDS: KETOROLAC 15 MG/ML VIAL (*BKC) IV PUSH (08:22)
[2024-10-11] MEDS: ACETAMINOPHEN 500 MG TABLET 1000 MG PO ×3 (08:22→21:00)
--- NOTE | 2024-10-11 08:43 | WPDHPUPDATE1 ---
History and Physical Update Update Date/Time: 10/11/24 08:43 History and Physical has been reviewed, including an updated exam of the patient. There are NO changes in the patient's condition. Risks, benefits, and alternatives have been discussed and questions answered. Patient agrees to proceed with procedure. will undergo bilateral salpingectomy
[2024-10-11] MEDS: ceFAZolin 2 GM/D5W 50 ML 2 GM/50 ML BAG IVPB (08:55)
--- NOTE | 2024-10-11 09:49 | W.PM.PROC2 ---
Procedure Note - Detailed Date of Procedure 10/11/24 Pre-op Diagnosis uterine prolapse, pelvic pain, dyspareunia Post-op Diagnosis Same Procedure Performed Robotic total vaginal hysterectomy and bilateral salpingectomy Surgeon Titus Solitario MD Anesthesia General Indications 34-year-old female with uterine prolapse and pelvic pain and dyspareunia Findings prolapsed uterus. Normal-appearing ovaries tubes status post tubal ligation paraovarian cyst Description of Procedure patient was prepped draped in the sterile fashion placed in dorsal lithotomy position. Under excellent general trach anesthesia weighted speculum placed in posterior fornix vagina. Anterior lip of cervix grasped with single-tooth tenaculum uterus sounded to 9cm. Serial dilatation fragmented dilators performed followed by passage of the 8. BING and the 3. Cold cup. Next the 16 Bulgarian catheter was placed the bladder. The weighted speculum and the single-tooth removed. The gloves were changed. A supraumbilical incision made the Veress needle passed in the abdomen. Abdomen filled with CO2 gas [id number]. The 8mm trocar advanced in the abdomen. Downside visualized no injury seen patient placed in Trendelenburg right left lateral quadrant incisions made. 8Mm trocars were advanced under direct visualization assuring no injury. A right upper quadrant incision made the 8mm trocar advanced under direct visualization assuring no injury. The robot was docked. Attention was turned to the career development counselor. The left round ligament glass, burned, cut anterior bladder flap was formed by sharply dissecting the peritoneum reflecting the bladder caudally away from the cervix to the opposite round ligament which was clamped, burned, cut. Next the left fallopian tube which had been previously bisected was dissected away from the ovarian complex and left attached to its uterine origin. In similar fashion on the right the fallopian tube was sharply dissected away from ovary and left attached to its uterine origin. The utero-ovarian ligament on the right was serially skeletonized to conserve the left ovary was clamped, burned, cut and brought to level of previously cut round ligament. In similar fashion conserving the right ovary, the utero-ovarian was clamped, burned, cut and brought to the level of previously cut round ligament. The cardinal broad ligaments on the left were serially skeletonized clamping burning cutting and bringing this down the lateral edge of the uterus and cervix hugging the cervix uterus until the large tortuous blood vessels were seen. These were individually clamped, burned, cut. In similar fashion on the right the cardinal broad ligaments were serially skeletonized clamping burning cutting and previous down the lateral edge until the uterine vessels could be seen on the right these were individually clamped, burned, cut. The uterus with showed good blanching and colpotomy incision was made. Cervix uterus and tubes removed through the vagina. The vagina then closed with continuous running 0V lock from lateral edge to lateral edge back to the midline. Irrigation undertaken to clear and hemostasis was assured. All pedicles were dry. The robot was undocked. The gas removed from the abdomen the trocars removed the incisions closed with 4 Monocryl and glue. The patient was awakened went recovery in satisfactory condition. All sponge, needle, instrument counts were correct. There were no immediate complications Estimated Blood Loss 25 Drains No Packing No Pathology Yes Complications No immediate complications Condition Stable Disposition PACU
--- NOTE | 2024-10-11 09:53 | PM.DS ---
DS: Admitting Diagnosis Discharge Date 10/12/2024. Admitting Diagnosis Uterine prolapse/pelvic pain/ dyspareunia DS: Discharge Diagnosis Discharge Diagnosis (1) Uterine prolapse: Code(s): N81.4 - Uterovaginal prolapse, unspecified Status: Acute (2) Pelvic pain: Code(s): R10.2 - Pelvic and perineal pain Status: Acute (3) Iron deficiency anemia, unspecified: Qualifiers: Iron deficiency anemia type: unspecified iron deficiency Qualified Code(s): D50.9 - Iron deficiency anemia, unspecified Code(s): D50.9 - Iron deficiency anemia, unspecified Status: Acute DS: Summary Hospital Course Reason for hospitalization: patient was admitted for robotic total vaginal hysterectomy bilateral salpingectomy on 10/11/2024. Hospital Course: Patient's hospital course unremarkable. She remained afebrile. She was up, voiding without difficulty, eating regular diet, ambulating, and generally without complaints. Time Spent with Patient Time attestation: Total time spent providing and/or coordinating discharge services: Exam Const: General: cooperative, healthy appearing and comfortable Nutritional Appearance: average body habitus Orientation/consciousness: oriented to person, oriented to place and oriented to time HENMT: Head: normal to inspection Chest: Chest palpation & inspection: normal inspection of the chest Resp: Effort & Inspection: normal respiratory effort Cardio: Rate: regular rate Rhythm: regular rhythm Heart sounds: S1 normal heart sound present and S2 normal heart sound present GI: Inspection: normal to inspection and incision ( Wounds are clean dry and intact) DS: Data Data Completed and Pending Pending studies at discharge: Pending at discharge 10/11/24 09:24 Surgical [PTH] Routine Discharge Plan Discharge Patient Disposition: Home, Self-Care Stand Alone Forms: General Discharge Instructions Follow-up/Referrals: Titus Brown MD [Physician] - Discharge Medications: New oxycodone-acetaminophen [Percocet] 5-325 mg tablet 1 tablet PO Q4H PRN (Reason: pain) Qty: 20 0RF No Action aspirin 81 mg Tablet,Chewable 81 mg PO DAILY progesterone micronized 100 mg capsule 150 mg PO QAM Rx Instructions: off 7 days; repeat cycle B-complex with vitamin C Tablet 1 tablet PO DAILY ferrous sulfate [Feosol] 325 mg (65 mg iron) tablet 325 mg PO BID Qty: 180 1RF multivitamin [One-A-Day Essential] Tablet 1 tablet PO DAILY Qty: 90 0RF omega-3 fatty acids [Fish Oil Concentrate] 1,000 mg capsule 1,000 mg PO DAILY cyanocobalamin (vitamin B-12) 1,000 mcg tablet 1,000 mcg PO DAILY Qty: 90 0RF magnesium oxide 500 mg capsule 500 mg PO DAILY triamcinolone acetonide [Nasacort] 55 mcg aerosol,spray 2 spray intranasal DAILY PRN (Reason: seasonal allergies) Qty: 16.9 0RF Rx Instructions: administer into each nostril cholecalciferol (vitamin D3) 50 mcg (2,000 unit) capsule 50 mcg PO DAILY losartan 25 mg tablet See Rx Instructions .ROUTE .COMPLEX Qty: 90 1RF Dose Instruction: Take 1 tablet by mouth once daily Rx Instructions: Take 1 tablet by mouth once daily bupropion HCl 150 mg tablet extended release 24 hr See Rx Instructions .ROUTE .COMPLEX Qty: 45 0RF Dose Instruction: TAKE 1 TABLET BY MOUTH IN THE MORNING. CAN TAKE 2 TABLETS NEEDED FOR INCREASED ANXIETY Rx Instructions: TAKE 1 TABLET BY MOUTH IN THE MORNING. CAN TAKE 2 TABLETS NEEDED FOR INCREASED ANXIETY
[2024-10-11] MEDS: fentaNYL CITRATE INJ (*CRX) 100 MCG/2 ML VIAL 25 MCG IV PUSH ×8 (10:13→10:45)
[2024-10-11 10:43] LABS: BEDSIDEPREGUCG Negative (Negative)
--- NOTE | 2024-10-11 11:10 | PC.NURSE ---
This patient, Rachana Veloz, was received from PACU on 10/11/24 at 1110. Patient/family oriented to unit policies and routines
[2024-10-11] MEDS: DEXTROSE 5%/LACTATED RINGERS 1,000 ML 125 ML IV CONT ×2 (11:45→17:04)
[2024-10-11 13:39] LABS: Hematocrit 39.1 % (37.0-47.0); Hemoglobin 12.9 g/dL (12.0-15.0)
[2024-10-11] MEDS: SIMETHICONE 80 MG TAB.CHEW PO ×2 (14:01→17:04)
[2024-10-11] MEDS: KETOROLAC 30 MG/ML VIAL (*BKC) IV PUSH ×2 (14:03→21:00)
[2024-10-11] MEDS: ONDANSETRON INJ 4 MG/2 ML VIAL IV PUSH (17:06)
[2024-10-12] MEDS: ACETAMINOPHEN 500 MG TABLET 1000 MG PO ×2 (03:00→08:54)
[2024-10-12] MEDS: KETOROLAC 30 MG/ML VIAL (*BKC) IV PUSH (03:00)
[2024-10-12 04:00] VITALS: BP 105/69; PULSE 63; RESP 18; TEMP 36.4; O2SAT 98
[2024-10-12 04:37] LABS: Basophils Absolute Auto 0.1 K/mm3 (0.0-0.1); Basophils Percent Auto 0.7 % (0.2-1.2); Eosinophils Percent Auto 0.6 % (0-4.4); Hematocrit 35.8 % (37.0-47.0); Hemoglobin 11.5 g/dL (12.0-15.0); Immature Granulocyte Absolute 0.01 K/mm3 (0.00-0.031); Immature Granulocyte Percent A 0.1 % (0-0.5); Lymphocytes Absolute Auto 1.13 K/mm3 (0.9-3.2); Lymphocytes Percent Auto 15.6 % (18.3-44.2); Mean Corpuscular HGB Conc 32.1 g/dl (32-36); Mean Corpuscular Hemoglobin 27.5 pg (26-34); Mean Corpuscular Volume 85.6 fl (80-100); Monocytes Absolute Auto 0.8 K/mm3 (0.1-0.6); Monocytes Percent Auto 10.9 % (2.6-8.5); Neutrophils Absolute Auto 5.2 K/mm3 (1.3-6.7); Neutrophils Percent Auto 72.1 % (45.5-73.1); Platelet Count Result 144 k/mm3 (150-375); Red Blood Count 4.18 M/mm3 (4.2-5.4); White Blood Count 7.2 K/mm3 (4.5-10.0)
--- NOTE | 2024-10-12 06:48 | WPDANESPN ---
Anes - Prog Note Post-Op Date/Time: 10/12/24 06:48 Cardiovascular status: normal Respiratory status: normal Airway patency: baseline Mental status: baseline Post-Op hydration status: normal Vital Signs: Last Vital Signs Temp 97.6 F 10/12/24 04:00 Pulse 63 10/12/24 04:00 Resp 18 10/12/24 04:00 BP 105/69 10/12/24 04:00 Pulse Ox 98 10/12/24 04:00 O2 Del Method Room Air 10/12/24 04:00 O2 Flow Rate 2.0 10/11/24 13:00 Pain Score (VAS): 0 I/O: Intake & Output 10/11/24 10/11/24 10/12/24 15:59 23:59 07:59 Intake Total 1040 1164.6 1400 Output Total 325 1200 500 Balance 715 -35.4 900 Laboratory Tests 10/12/24 03:49 10/11/24 10/11/24 10/12/24 08:30 13:35 03:49 WBC 7.2 RBC 4.18 L Hgb 12.9 11.5 L Hct 39.1 35.8 L MCV 85.6 MCH 27.5 MCHC 32.1 RDW 13.0 Plt Count 144 L MPV 10.0 Immature Gran % (Auto) 0.1 Neut % (Auto) 72.1 Lymph % (Auto) 15.6 L [place] % (Auto) 10.9 H Eos % (Auto) 0.6 Baso % (Auto) 0.7 Lymph # (Auto) 1.13 [place] # (Auto) 0.8 H Eos # (Auto) 0.0 Baso # (Auto) 0.1 Abs Immat Gran (auto) 0.01 Absolute Neuts (auto) 5.2 Absolute Nucleated RBC 0.000 Nucleated RBC % 0.0 POC Urine HCG, Qual Negative Post-procedural complaints: nausea Patient Feedback: Patient satisfied with anesthetic care.
[2024-10-12 08:50] VITALS: BP 124/73; PULSE 76; RESP 18; TEMP 36.5; O2SAT 100
[2024-10-12] MEDS: SIMETHICONE 80 MG TAB.CHEW PO (08:55)
[2024-10-12] MEDS: DOCUSATE SODIUM 100 MG CAPSULE PO (08:55)
[2024-10-12] MEDS: IBUPROFEN 600 MG TABLET PO (08:55)
[2024-10-12] MEDS: ENOXAPARIN 40 MG/0.4 ML SYRINGE SUB-Q (08:55)
--- NOTE | 2024-10-12 11:03 | P.PNOB_ITS ---
KINDERGARTEN TEACHER ASSISTANT - A/P Postoperative Procedures: Procedures Operation Date: 10/11/24 09:30 Actual Procedure Side Surgeon p Robotic Assisted Total Vaginal Hysterectomy with Bilateral Salpingectomy Bilateral Titus Solitario MD Postoperative day: 1 Postoperative status: doing well Postoperative plan: routine post-op care, discharge and other (plan was for Lovenox for 2 weeks due to history ) Time Spent With Patient Time: Total time spent is greater than 50% in coordination of care (as documented) at patient's floor/unit and/or counseling patient: Time with patient: less than 15 minutes KINDERGARTEN TEACHER ASSISTANT- PN:Subj Post-Op Subjective Date/time seen: 10/12/24 11:03 Subjective: patient has no complaints, pain is well controlled and patient is tolerating oral intake Exam Narrative: inc c/d/i abdomen soft, nt, nd KINDERGARTEN TEACHER ASSISTANT - PN: Obj Data Vital Signs Vital Signs: Vital Signs - 24 hr 10/11/24 11:05 10/11/24 11:15 10/11/24 12:25 Temperature 98.5 F Pulse Rate 83 73 58 L Respiratory Rate 12 16 16 Blood Pressure 113/67 123/78 116/82 Pulse Oximetry 98 98 98 Oxygen Delivery Room Air Oxygen Flow Rate 10/11/24 12:40 10/11/24 12:45 10/11/24 13:00 Temperature Pulse Rate 54 L 74 Respiratory Rate 18 Blood Pressure 121/82 117/76 Pulse Oximetry 90 100 99 Oxygen Delivery Nasal Cannula Oxygen Flow Rate 2.0 10/11/24 13:00 10/11/24 19:00 10/11/24 19:00 Temperature 98.3 F Pulse Rate 88 Respiratory Rate 18 Blood Pressure 111/77 Pulse Oximetry 99 98 Oxygen Delivery Nasal Cannula Room Air Oxygen Flow Rate 2.0 10/11/24 15:45 10/11/24 17:00 10/11/24 23:00 Temperature 98.1 F Pulse Rate 86 85 94 Respiratory Rate 18 16 Blood Pressure 115/82 121/79 109/65 Pulse Oximetry 99 100 98 Oxygen Delivery Oxygen Flow Rate 10/11/24 23:00 10/12/24 04:00 10/12/24 04:00 Temperature 97.6 F Pulse Rate 63 Respiratory Rate 18 Blood Pressure 105/69 Pulse Oximetry 98 Oxygen Delivery Room Air Room Air Oxygen Flow Rate 10/12/24 08:50 Temperature 97.7 F Pulse Rate 76 Respiratory Rate 18 Blood Pressure 124/73 Pulse Oximetry 100 Oxygen Delivery Oxygen Flow Rate Intake/Output Intake/Output: Intake & Output 10/09/24 10/10/24 10/11/24 10/12/24 23:59 23:59 23:59 23:59 Intake Total 2204.6 1400 Output Total 1525 500 Balance 679.6 900 Meds/Results Medications: Active Medications Generic Name Dose Route Start Last Admin Trade Name Freq PRN Reason Stop Dose Admin Acetaminophen 1,000 mg 10/11/24 12:00 10/12/24 08:54 Acetaminophen 500 Mg Tablet PO 1,000 mg Q6HR CATRACHO Administration Docusate Sodium 100 mg 10/11/24 17:00 10/12/24 08:55 Docusate Sodium 100 Mg Capsule PO 100 mg BID CATRACHO Administration Enoxaparin Sodium 40 mg 10/12/24 09:00 10/12/24 08:55 Enoxaparin 40 Mg/0.4 Ml Syringe SUB-Q 40 mg DAILY CATRACHO Administration Dextrose/Lactated Ringer's 1,000 mls @ 125 mls/hr 10/11/24 11:10 10/12/24 01:04 Dextrose 5%/Lactated Ringers IV CONT Infused .Q8H CATRACHO Infusion Ibuprofen 600 mg 10/12/24 06:00 10/12/24 08:55 Ibuprofen 600 Mg Tablet PO 600 mg Q6HR CATRACHO Administration Naloxone HCl 0.1 mg 10/11/24 11:10 Naloxone Hcl 0.4 Mg/Ml Vial IV PUSH Q2M PRN Respiratory rate less than 10 Ondansetron HCl 4 mg 10/11/24 11:10 10/11/24 17:06 Ondansetron Inj 4 Mg/2 Ml Vial IV PUSH 4 mg Q6H PRN Administration Nausea And Vomiting Oxycodone HCl 5 mg 10/11/24 11:10 Oxycodone Hcl (*Crx) 5 Mg Tab Ir PO Q4H PRN Pain Rated 4-6 Oxycodone/Acetaminophen 1 tablet 10/11/24 09:57 Oxycodone/Acetaminophen (*Crx) 5-325 Mg Tablet PO Q4H PRN Pain Rated 7-10 Simethicone 80 mg 10/11/24 12:00 10/12/24 08:55 Simethicone 80 Mg Tab.Chew PO 80 mg TIDWM CATRACHO Administration Labs 10/12/24 03:49 Labs: Laboratory Results - last 24 hr 10/11/24 10/12/24 13:35 03:49 WBC 7.2 RBC 4.18 L Hgb 12.9 11.5 L Hct 39.1 35.8 L MCV 85.6 MCH 27.5 MCHC 32.1 RDW 13.0 Plt Count 144 L MPV 10.0 Immature Gran % (Auto) 0.1 Neut % (Auto) 72.1 Lymph % (Auto) 15.6 L [place] % (Auto) 10.9 H Eos % (Auto) 0.6 Baso % (Auto) 0.7 Lymph # (Auto) 1.13 [place] # (Auto) 0.8 H Eos # (Auto) 0.0 Baso # (Auto) 0.1 Abs Immat Gran (auto) 0.01 Absolute Neuts (auto) 5.2 Absolute Nucleated RBC 0.000 Nucleated RBC % 0.0
== END 2024-10-12 11:42 | disposition home or self-care (01) ==
LOC: ANHSURGERY 07:21 → ANHOB2 11:16
PROVIDERS: PCP Internal Medicine; Visit Provider Obstetrics & Gynecology
PROC: (CPT 58552; principal; 2024-10-11 09:30)
DX: N81.4 Uterovaginal prolapse, unspecified (principal); N72 Inflammatory disease of cervix uteri; N88.8 Other specified noninflammatory disorders of cervix uteri; D25.1 Intramural leiomyoma of uterus; N70.11 Chronic salpingitis; F41.9 Anxiety disorder, unspecified; I10 Essential (primary) hypertension; D50.9 Iron deficiency anemia, unspecified; R01.1 Cardiac murmur, unspecified; D64.9 Anemia, unspecified; I34.0 Nonrheumatic mitral (valve) insufficiency; Z79.899 Other long term (current) drug therapy; Z79.82 Long term (current) use of aspirin; Z79.891 Long term (current) use of opiate analgesic; Z98.890 Other specified postprocedural states; Z98.51 Tubal ligation status; Z85.828 Personal history of other malignant neoplasm of skin
CPT/HCPCS: 58552; S2900; 36415; 85014; 85018; 85025; 88307; 99199; A9270; J0690; J1100; J1171; J1650; J1885; J2003; J2250; J2405; J2704; J3010; J7030; J7120; J7121

== ENCOUNTER 2025-09-10 08:03 | Emergency (ER) | payer OTHER, SELFPAY ==
--- NOTE | ~2025-09-10 | XR_ITS ---
EXAMINATION: XR chest 2V, 09/10/2025 8:32 CDT HISTORY: dizzy, COMPARISON: No comparisons available. Technique: 2 views obtained. Findings: The lungs are clear, no effusion. No pneumothorax. Heart is normal size. Mediastinal and hilar contours are within normal limits. Bony thorax no acute abnormality. Impression: No acute cardiopulmonary abnormality. Reviewed, dictated and finalized at location P. Impression: No acute cardiopulmonary abnormality.
[2025-09-10 08:10] VITALS: BP 148/102; PULSE 87; RESP 16; TEMP 36.4; O2SAT 99
--- NOTE | 2025-09-10 08:11 | ECG_ITS ---
Test Date: 2025-09-10 08:16:47 Measurements Intervals [place] Rate: 88 P: 78 DC: 148 QRS: 72 QRSD: 81 T: 28 QT: 341 QTc: 413 Interpretive Statements SINUS RHYTHM WITH SINUS ARRHYTHMIA BORDERLINE ST-T WAVE ABNORMALITY- INF/LAT LEADS BASELINE ARTIFACT- I, II, AVR BORDERLINE ECG Compared to ECG 10/08/2024 08:48:15 NO SIGNIFICANT CHANGE Electronically Signed On 09-10-2025 08:24:14 CDT by Danny Martinez D.O.
[2025-09-10 08:20] VITALS: BP 150/111; PULSE 85; RESP 16; TEMP 36.6; O2SAT 99
[2025-09-10 08:35] LABS: Hematocrit 43.1 % (37.0-47.0); Hemoglobin 14.7 g/dL (12.0-15.0); Immature Granulocyte Percent A 0.3 % (0-0.5); Lymphocytes Absolute Auto 0.90 K/mm3 (0.9-3.2); Mean Corpuscular HGB Conc 34.1 g/dl (32-36); Mean Corpuscular Hemoglobin 29.7 pg (26-34); Mean Corpuscular Volume 87.1 fl (80-100); Nucleated Red Blood Cells Absolute Auto 0.000 K/mm3 (0.0-0.012); Nucleated Red Blood Cells Perc 0.0 % (0.0-0.2); Platelet Count Result 167 k/mm3 (150-375); Red Blood Count 4.95 M/mm3 (4.2-5.4); White Blood Count 7.7 K/mm3 (4.5-10.0)
[2025-09-10 08:37] LABS: Add Urine Microscopic? NO; Appearance Urine Clear (Clear); Glucose Urine UA Negative (Negative); Leukocyte Esterase Ur Negative LEU/UL (Negative); Nitrate Urine Negative (Negative); Specific Grav Ur 1.003 (1.001-1.035)
[2025-09-10 08:46] LABS: Alanine Aminotransferase 21 U/L (6-35); Albumin Level 4.8 g/dL (3.5-5.1); Alkaline Phosphatase 54 U/L (38-126); Anion Gap 7 mmol/L (4-12); Aspartate Amino Transferase 31 U/L (14-36); Bilirubin,Total 0.6 mg/dL (0.2-1.3); Blood Urea Nitrogen 24 mg/dL (7-17); Calcium 9.5 mg/dL (8.4-10.2); Carbon Dioxide 29 mmol/L (22-30); Chloride 102 mmol/L (98-107); Estimated CRCL calculation 64 ml/min; Estimated Glomerular Filt Rate > 60; Glucose 108 mg/dL (65-110); Potassium 4.6 mmol/L (3.4-5.0); Sodium 138 mmol/L (137-145); Total Protein 7.9 g/dL (6.3-8.2)
[2025-09-10 09:48] LABS: NT Pro B Type Natriuretic Pept 20 pg/mL (19.9-100); Troponin I < 0.012 ng/mL (0.000-0.034)
[2025-09-10 10:32] VITALS: BP 121/99; PULSE 80; RESP 17; O2SAT 97
--- NOTE | 2025-09-10 10:45 | ED.GENADULT ---
HPI - General Adult General Chief complaint: Recheck/Abnormal Lab/Rx Stated complaint: dizzy, near syncope, taken off bp meds recently Time Seen by Provider: 09/10/25 08:07 History of Present Illness HPI narrative: This is a 35-year-old female with history of MTHFR, hypertension, anxiety, on testosterone/progesterone presenting for an episode dizziness. Patient says that when she was eating breakfast today she felt some chest fullness and became dizzy and lightheaded. She did not lose consciousness. She has not had any nausea vomiting diarrhea. She does not have any recent viral illness. She does not chest pain or shortness of breath. She has no swelling of her lower extremities. Related Data Home Medications ?Medication ?Instructions ?Recorded ?Confirmed ?Last Taken ?Type aspirin 81 mg chewable tablet 81 mg PO DAILY 12/31/19 05/13/25 10/10/24 History magnesium oxide 500 mg capsule 500 mg PO DAILY 08/17/20 05/13/25 3 Days Ago History ~10/08/24 omega-3 fatty acids 1,000 mg 1,000 mg PO DAILY 08/17/20 05/13/25 3 Days Ago History capsule (Fish Oil Concentrate) ~10/08/24 cholecalciferol (vitamin D3) 50 50 mcg PO DAILY 03/23/23 05/13/25 3 Days Ago History mcg (2,000 unit) capsule ~10/08/24 B-complex with vitamin C 1 tablet PO DAILY 10/01/24 05/13/25 3 Days Ago History ~10/08/24 Allergies Allergy/AdvReac Type Severity Reaction Status Date / Time codeine Allergy Unknown Nausea and Verified 09/10/25 08:15 Vomiting latex Allergy Unknown Rash Verified 09/10/25 08:15 [facility] Past Medical History Medical History (Reviewed 05/13/25 @ 14:58 by Janny Guzman, [facility]) Adult BMI 19-24 kg/sq m Adult BMI <19 kg/sq m Anxiety Anxiety Encounter for preventive health examination Encounter for routine adult health examination with abnormal findings Encounter for routine adult health examination without abnormal findings Enlarged thyroid Essential (primary) hypertension Establishing care with new doctor, encounter for FHx: thromboembolic disease Follow up Hair loss Heart murmur History of anemia History of anxiety History of basal cell cancer History of ectopic History of headache History of in vitro fertilization Hoarseness of voice Hypertension With Mitral valve regurgitation On watermelon harvesting supervisor drug therapy Pelvic pain Testosterone insufficiency Thyroid nodule Thyromegaly Family History Family History Mother Hypotension Rheumatoid arthritis Jaime's disease Sibling Hypertension Jaime's disease Social History Social History (Reviewed 05/13/25 @ 14:58 by Janny Guzman [facility]) Smoking status: Never smoker Alcohol intake: current Drinks per week: 6 Alcohol use details: Social Substance use: never Substance use type: does not use Lack of Transportation: No Lack of Food: Never True Current Housing: I Have Housing Concerned About Future Housing: No Difficulty Paying Gas/Electric Bills: No Difficulty Paying for Meds: No Currently Unemployed: No Education: Associate Degree Difficulty w/ Childcare or Family Care: No Living arrangements: with family Occupation/Education: occupation Gender identity (if verbalized by the patient): Female Spiritual care concerns: No Exam Narrative: APPEARANCE: No apparent distress. Well-appearing, A&O x3 Head: atraumatic. EYES: EOMI, NOSE: Atraumatic NECK: Trachea midline RESPIRATORY: No increased rate of breathing clear to auscultation CARDIOVASCULAR: RRR, no peripheral edema ABDOMINAL: Non-distended, soft nontender MUSCULOSKELETAl: No obvious deformities NEURO: Alert. Moving 4/4 extremities SKIN:: Warm, dry. Normal color PSYCHIATRIC: Normal affect Course Vital Signs Vital signs: Vital Signs Temperature 97.6 F 09/10/25 08:10 Pulse Rate 87 09/10/25 08:10 Respiratory Rate 16 09/10/25 08:10 Blood Pressure 148/102 H 09/10/25 08:10 Pulse Oximetry 99 09/10/25 08:10 Temperature 97.8 F 09/10/25 08:20 Pulse Rate 88 09/10/25 12:13 Respiratory Rate 16 09/10/25 12:13 Blood Pressure 138/95 H 09/10/25 12:13 Pulse Oximetry 97 09/10/25 12:13 Medical Decision Making MDM Narrative Medical decision making narrative: -Course: 35-year-old female presenting for dizziness and lightheadedness. Broad workup obtained due to multiple medical comorbidities including MTHFR and hormone replacement. Troponins negative x2. BNP and D-dimer within normal limits. Initial EKG showed nonspecific ST changes in 2 3 and AVF although those had resolved by her 3 hour. Patient was monitored throughout her stay with no recurrence of her dizziness. Results were discussed with the patient she is comfortable following up with her primary care physician management. Given return precautions. -DDX includes but is not limited to: Dehydration, anxiety, viral illness, cardiac dysrhythmia, PE, pneumonia Vital Signs Vital Signs: Vital Signs Temperature 97.6 F 09/10/25 08:10 Pulse Rate 87 09/10/25 08:10 Respiratory Rate 16 09/10/25 08:10 Blood Pressure 148/102 H 09/10/25 08:10 Pulse Oximetry 99 09/10/25 08:10 Temperature 97.8 F 09/10/25 08:20 Pulse Rate 88 09/10/25 12:13 Respiratory Rate 16 09/10/25 12:13 Blood Pressure 138/95 H 09/10/25 12:13 Pulse Oximetry 97 09/10/25 12:13 Lab Data 09/10/25 08:25 09/10/25 08:25 Labs: Lab Results 09/10/25 09/10/25 Range/Units 08:25 11:18 WBC 7.7 (4.5-10.0) K/mm3 RBC 4.95 (4.2-5.4) M/mm3 Hgb 14.7 D (12.0-15.0) g/dL Hct 43.1 (37.0-47.0) % MCV 87.1 (80-100) fl MCH 29.7 (26-34) pg MCHC 34.1 (32-36) g/dl RDW 11.5 (11.5-14.5) % Plt Count 167 (150-375) k/mm3 MPV 9.8 (7.4-10.4) fl Immature Gran % (Auto) 0.3 (0-0.5) % Neut % (Auto) 78.6 H (45.5-73.1) % Lymph % (Auto) 11.7 L (18.3-44.2) % [place] % (Auto) 7.8 (2.6-8.5) % Eos % (Auto) 0.8 (0-4.4) % Baso % (Auto) 0.8 (0.2-1.2) % Lymph # (Auto) 0.90 (0.9-3.2) K/mm3 [place] # (Auto) 0.6 (0.1-0.6) K/mm3 Eos # (Auto) 0.1 (0-0.3) K/mm3 Baso # (Auto) 0.1 (0.0-0.1) K/mm3 Abs Immat Gran (auto) 0.02 (0.00-0.031) K/mm3 Absolute Neuts (auto) 6.1 (1.3-6.7) K/mm3 Absolute Nucleated RBC 0.000 (0.0-0.012) K/mm3 Nucleated RBC % 0.0 (0.0-0.2) % D-Dimer 0.40 (<0.48) ug/mL Sodium 138 (137-145) mmol/L Potassium 4.6 (3.4-5.0) mmol/L Chloride 102 (98-107) mmol/L Carbon Dioxide 29 (22-30) mmol/L Anion Gap 7 (4-12) mmol/L BUN 24 H (7-17) mg/dL Creatinine 0.83 (0.7-1.0) mg/dL Estim Creat Clear Calc 64 ml/min Estimated GFR > 60 (59 - ) Glucose 108 (65-110) mg/dL Calcium 9.5 (8.4-10.2) mg/dL Total Bilirubin 0.6 (0.2-1.3) mg/dL AST 31 (14-36) U/L ALT 21 (6-35) U/L Alkaline Phosphatase 54 (38-126) U/L Troponin I < 0.012 < 0.012 (0.000-0.034) ng/mL NT-Pro-B Natriuret Pep 20 (19.9-100) pg/mL Total Protein 7.9 (6.3-8.2) g/dL Albumin 4.8 (3.5-5.1) g/dL Urine Color Yellow (Yellow) Urine Appearance Clear (Clear) Urine pH 7.5 (5.0-9.0) Ur Specific [place] 1.003 (1.001-1.035) Urine Protein Negative (Negative) mg/dL Urine Glucose (UA) Negative (Negative) mg/dL Urine Ketones Negative (Negative) mg/dL Ur Blood (Man) Negative (Negative) Urine Nitrate Negative (Negative) Urine Bilirubin Negative (Negative) Urine Urobilinogen 0.2 (<2.0) mg/dL Leukocyte Esterase Rfl Negative (Negative) RILEY/UL Discharge Plan Discharge Clinical Impression: Dizziness Patient Disposition: Home Condition: Stable Instructions: Antibiotic Form, Dizziness (ED) Additional Instructions: You were seen emergency department for dizziness and lightheadedness. Your workup here was reassuring we did not find any cause of her symptoms. Please follow-up with your primary care physician for further management. If you develop any new symptoms he can return to the ED for re-evaluation. Patient Language: [place] Prescriptions: No Action aspirin 81 mg Tablet,Chewable 81 mg PO DAILY B-complex with vitamin C Tablet 1 tablet PO DAILY multivitamin [One-A-Day Essential] Tablet 1 tablet PO DAILY Qty: 90 0RF omega-3 fatty acids [Fish Oil Concentrate] 1,000 mg capsule 1,000 mg PO DAILY cyanocobalamin (vitamin B-12) 1,000 mcg tablet 1,000 mcg PO DAILY Qty: 90 0RF magnesium oxide 500 mg capsule 500 mg PO DAILY triamcinolone acetonide [Nasacort] 55 mcg aerosol,spray 2 spray intranasal DAILY PRN (Reason: seasonal allergies) Qty: 16.9 0RF Rx Instructions: administer into each nostril cholecalciferol (vitamin D3) 50 mcg (2,000 unit) capsule 50 mcg PO DAILY bupropion HCl 150 mg tablet extended release 24 hr See Rx Instructions .ROUTE .COMPLEX Qty: 60 0RF Dose Instruction: Take 1 tablet by mouth twice daily Rx Instructions: Take 1 tablet by mouth twice daily Follow-up/Referrals: Partha Meier MD [Primary Care Provider, Internal Medicine]
--- NOTE | 2025-09-10 11:03 | ECG_ITS ---
Test Date: 2025-09-10 11:18:03 Measurements Intervals [place] Rate: 75 P: 70 IN: 160 QRS: 71 QRSD: 77 T: 63 QT: 360 QTc: 402 Interpretive Statements SINUS RHYTHM NORMAL ECG Compared to ECG 09/10/2025 08:16:47 Sinus arrhythmia no longer present Electronically Signed On 09-10-2025 11:28:51 CDT by Danny Martinez D.O.
[2025-09-10 11:50] LABS: Troponin I < 0.012 ng/mL (0.000-0.034)
[2025-09-10 12:13] VITALS: BP 138/95; PULSE 88; RESP 16; O2SAT 97
[2025-09-10 12:53] VITALS: BP 128/92; PULSE 86; RESP 15; TEMP 36.9; O2SAT 97
== END 2025-09-10 12:54 | disposition home or self-care (01) ==
PROVIDERS: Emergency Provider Emergency Medicine; PCP Internal Medicine
DX: R42 Dizziness and giddiness (principal); I10 Essential (primary) hypertension; F41.9 Anxiety disorder, unspecified
CPT/HCPCS: 36415; 71046; 80053; 81003; 83880; 84484; 85025; 85380; 93005; 99284

== ENCOUNTER 2025-09-29 12:18 | Outpatient (CLI) | payer OTHER, SELFPAY ==
--- NOTE | ~2025-09-29 | US_ITS ---
EXAMINATION: US thyroid DATE: 09/29/2025 13:06 INDICATION: Nontoxic nodule TECHNIQUE: Multiple ultrasound images of the thyroid were obtained. COMPARISON: August 17, 2020 FINDINGS: The right thyroid lobe measures 5.3 x 1.5 x 1.7 cm. The left thyroid lobe measures 4.9 x 1.3 x 1.6 cm. Right lobe measured 6 cm in the greatest dimension, and the left lobe measured 7 cm in the greatest dimension on the previous exam. The area in the right lobe of the thyroid described on the previous exam appears normal today. Isthmus: 2.3 mm There is normal echotexture and echogenicity throughout the thyroid gland. No discrete nodules identified. Normal vascular flow is present. IMPRESSION: 1. Borderline thyromegaly by size. Size is decreased however compared to the previous exam. 2. No suspicious nodules or masses. Reviewed, dictated and finalized at location A. REFINERY SUPERVISOR IMPRESSION: 1. Borderline thyromegaly by size. Size is decreased however compared to the pr evious exam. 2. No suspicious nodules or masses.
== END 2025-09-29 12:19 | disposition home or self-care (01) ==
PROVIDERS: PCP Internal Medicine; Visit Provider Internal Medicine
DX: E01.0 Iodine-deficiency related diffuse (endemic) goiter (principal)
CPT/HCPCS: 76536